=== PATIENT | female | born 1995 | race Caucasian/White ===

== ENCOUNTER 2022-12-04 | Inpatient (IN) | payer OTHER ==
[~2022-12-04] MED LIST: Acetaminophen 325 MG Tab PO PRN; Carboprost Tromethamine 250 MCG/1 ML Amp IM PRN; Lactated Ringers 1,000 ML IV SCH; Lidocaine 1% 30 ML SDV INJECT PRN; Methylergonovine 0.2 MG/1 ML Amp IM PRN; Misoprostol 25 MCG (1/4 of 100 MCG) Tab VAG PRN; Misoprostol 400 MCG (4 X 100 MCG TAB) RECTAL PRN; Ondansetron 4 MG/2 ML SDV IVPUSH PRN; Oxytocin/Normal Saline 30 UNIT/500 ML BAG IV SCH; Sodium Chloride 0.9% 10 ML Syringe FLUSH PRN; Tranexamic Acid 1,000 MG in Sodium Chloride 0.9% 100 ML IV PRN
[2022-12-04 00:31] LABS: HEMATOCRIT 39.5 % (37.0-47.0); HEMOGLOBIN 13.4 g/dL (12.0-16.0); MEAN CORPUSCULAR HEMOGLOBIN 30.4 pg (27.0-34.0); MEAN CORPUSCULAR HGB CONC 33.9 g/dL (33.0-35.0); MEAN CORPUSCULAR VOLUME 89.6 fL (80-100); RED BLOOD CELL COUNT 4.41 10^6/uL (4.2-5.4); WHITE BLOOD CELL COUNT,WBC 11.9 10^3/uL (5.0-10.0)
[2022-12-04] MEDS ORDERED: fentaNYL 100 MCG/2 ML SDV IV ONE (07:58)
[2022-12-04] MEDS ORDERED: Bupivacaine 0.25% 10 ML SDV INJECT ONE (07:58)
[2022-12-04] MEDS ORDERED: fentaNYL 100 MCG/2 ML SDV ONE (07:58)
[2022-12-04] MEDS ORDERED: Bupivacaine 0.25% 10 ML SDV ONE (07:58)
[2022-12-04] MEDS ORDERED: ePHEDrine 50 MG/ML SDV IVPUSH PRN (08:21)
[2022-12-04] MEDS ORDERED: Phenylephrine HCl In 0.9% NaCl 1 MG/10 ML Syringe IVPUSH PRN (08:21)
[2022-12-04] MEDS ORDERED: Ropivacaine 200 MG in Premix Bag 1 BAG EPIDUR SCH (08:30)
[2022-12-04] MEDS ORDERED: Simethicone 80 MG Tab.Chew PO PRN (17:39)
[2022-12-04] MEDS ORDERED: Acetaminophen 325 MG Tab PO PRN (17:39)
[2022-12-04] MEDS: Witch Hazel Medicated Pads 100/Jar TOP PRN (20:03)
[2022-12-04] MEDS: Benzocaine/Menthol 20%-0.5% Spray 78 GM Cannister TOP PRN (20:03)
[2022-12-04] MEDS: Docusate Sodium 100 MG Cap PO PRN (23:08)
[2022-12-04] MEDS: Ibuprofen 800 MG Tab PO PRN (23:08)
[2022-12-05] MEDS: Ibuprofen 800 MG Tab PO PRN (06:29)
[2022-12-05] MEDS: Docusate Sodium 100 MG Cap PO PRN ×2 (06:29→09:12)
[2022-12-05 06:34] LABS: HEMATOCRIT 36.1 % (37.0-47.0); MEAN CORPUSCULAR HEMOGLOBIN 30.3 pg (27.0-34.0); MEAN CORPUSCULAR HGB CONC 33.2 g/dL (33.0-35.0); MEAN CORPUSCULAR VOLUME 91.2 fL (80-100); RED BLOOD CELL COUNT 3.96 10^6/uL (4.2-5.4); WHITE BLOOD CELL COUNT,WBC 15.9 10^3/uL (5.0-10.0)
[2022-12-05] MEDS ORDERED: Prenatal Multivitamin with Calcium/Folic Acid/Iron Tab PO SCH (09:00)
[2022-12-05] MEDS: Witch Hazel Medicated Pads 100/Jar TOP PRN (09:12)
[2022-12-05] MEDS: Benzocaine/Menthol 20%-0.5% Spray 78 GM Cannister TOP PRN (09:13)
== END 2022-12-05 09:30 | disposition home or self-care (01) | DRG 807 ==
LOC: DL.OBCHECK → DL.OB 00:22 → OBSVTOIN 15:45
PROVIDERS: ADMIT Family Medicine; ATTEND Family Medicine
PROC: 10E0XZZ Delivery of Products of Conception, External Approach (ICD-10-PCS; principal; 2022-12-04)
PROC: 10907ZC Drainage of Amniotic Fluid, Therapeutic from Products of Conception, Via Natural or Artificial Opening (ICD-10-PCS; 2022-12-04)
PROC: 3E0R3BZ Introduction of Anesthetic Agent into Spinal Canal, Percutaneous Approach (ICD-10-PCS; 2022-12-04)
PROC: 00HU33Z Insertion of Infusion Device into Spinal Canal, Percutaneous Approach (ICD-10-PCS; 2022-12-04)
PROC: 0HQ9XZZ Repair Perineum Skin, External Approach (ICD-10-PCS; 2022-12-04)
PROC: 0UQMXZZ Repair Vulva, External Approach (ICD-10-PCS; 2022-12-04)
PROC: 3E0P7VZ Introduction of Hormone into Female Reproductive, Via Natural or Artificial Opening (ICD-10-PCS; 2022-12-04)
DX: O48.0 Post-term pregnancy (principal); Z37.0 Single live birth; O99.02 Anemia complicating childbirth; O99.343 Other mental disorders complicating pregnancy, third trimester; F32.A Depression, unspecified; F41.9 Anxiety disorder, unspecified; O70.0 First degree perineal laceration during delivery; O71.82 Other specified trauma to perineum and vulva; Z88.8 Allergy status to other drugs, medicaments and biological substances; Z79.899 Other long term (current) drug therapy; Z3A.41 41 weeks gestation of pregnancy; D64.9 Anemia, unspecified
CPT/HCPCS: 01967; 36415; 51702; 59409; 85027; A9270-GY; J2590; J2795; J3010; J3490; J7120

== ENCOUNTER 2025-01-10 00:11 | Inpatient (IN) | payer BC, OTHER ==
[~2025-01-10 00:11] MED LIST changes: -Acetaminophen 325 MG Tab PO PRN; -Lactated Ringers 1,000 ML IV SCH; -Lidocaine 1% 30 ML SDV INJECT PRN; -Methylergonovine 0.2 MG/1 ML Amp IM PRN; -Misoprostol 25 MCG (1/4 of 100 MCG) Tab VAG PRN; -Misoprostol 400 MCG (4 X 100 MCG TAB) RECTAL PRN; -Ondansetron 4 MG/2 ML SDV IVPUSH PRN; -Tranexamic Acid 1,000 MG in Sodium Chloride 0.9% 100 ML IV PRN
[2025-01-10 00:56] LABS: PLATELET COUNT,PLT 242.0 10^3/uL (150-450); RED BLOOD CELL COUNT 4.03 10^6/uL (4.2-5.4); WHITE BLOOD CELL COUNT,WBC 10.8 10^3/uL (5.0-10.0)
[2025-01-10] MEDS: Misoprostol 50 MCG (1/2 of 100 MCG) Tab PO SCH (01:16)
[2025-01-10] MEDS: Misoprostol 25 MCG (1/4 of 100 MCG) Tab PO PRN (07:30)
[2025-01-10] MEDS: Oxytocin/Normal Saline 30 UNIT/500 ML BAG IV SCH (13:33)
[2025-01-10] MEDS: Lactated Ringers 1,000 ML IV SCH (13:35)
[2025-01-11] MEDS: fentaNYL 100 MCG/2 ML SDV IVPUSH ONE (17:16)
[2025-01-11] MEDS: fentaNYL 100 MCG/2 ML SDV ONE (18:16)
[2025-01-11] MEDS: Ondansetron 4 MG/2 ML SDV IVPUSH PRN (21:00)
[2025-01-11] MEDS ORDERED: Oxytocin 10 Units/1 ML SDV IM PRN (23:14)
[2025-01-12] MEDS: Witch Hazel Medicated Pads 100/Jar TOP PRN (00:51)
[2025-01-12] MEDS: Benzocaine/Menthol 20%-0.5% Spray 78 GM Cannister TOP PRN (00:52)
[2025-01-12] MEDS: Lactated Ringers 1,000 ML IV ONE (03:21)
[2025-01-12] MEDS: Prenatal Multivitamin with Calcium/Folic Acid/Iron Tab PO SCH (08:14)
[2025-01-13 00:11] LABS: PLATELET COUNT,PLT 246.0 10^3/uL (150-450); RED BLOOD CELL COUNT 3.86 10^6/uL (4.2-5.4); WHITE BLOOD CELL COUNT,WBC 12.2 10^3/uL (5.0-10.0)
[2025-01-13] MEDS: Measles, Mumps & Rubella Vaccine 0.5 ML SDV SUBCUT ONE (10:25)
== END 2025-01-13 11:07 | disposition home or self-care (01) | DRG 560 ==
LOC: DL.OB 00:11 → OBSVTOIN 01-11 22:53
PROVIDERS: ADMIT Family Medicine; ATTEND Family Medicine
PROC: 3E0R3BZ Introduction of Anesthetic Agent into Spinal Canal, Percutaneous Approach (ICD-10-PCS; principal; 2025-01-11)
PROC: 10907ZC Drainage of Amniotic Fluid, Therapeutic from Products of Conception, Via Natural or Artificial Opening (ICD-10-PCS; principal; 2025-01-11)
PROC: 10E0XZZ Delivery of Products of Conception, External Approach (ICD-10-PCS; principal; 2025-01-11)
PROC: 3E0234Z Introduction of Serum, Toxoid and Vaccine into Muscle, Percutaneous Approach (ICD-10-PCS; principal; 2025-01-11)
DX: O99.892 Other specified diseases and conditions complicating childbirth (principal); Z3A.39 39 weeks gestation of pregnancy; Z37.0 Single live birth; Z23 Encounter for immunization; Z88.8 Allergy status to other drugs, medicaments and biological substances; Z79.899 Other long term (current) drug therapy
CPT/HCPCS: 36415; 51702; 59409; 85027; 90471; 90707; A9270-GY; J2405; J2590; J3010; J7120